=== PATIENT | male | born 1960 | race Caucasian/White ===

== ENCOUNTER 2022-05-06 08:01 | Outpatient (CLI) | payer OTHER, SELFPAY ==
[2022-05-06 10:39] LABS: PSA Screen* 2.24 ng/mL (0.10-4.00)
== END 2022-05-06 08:02 | disposition home or self-care (01) ==
LOC: NFLDREF 08:01
PROVIDERS: PCP Internal Medicine; Visit Provider Internal Medicine
DX: N40.0 Benign prostatic hyperplasia without lower urinary tract symptoms (principal)
CPT/HCPCS: 84153

== ENCOUNTER 2023-01-30 08:06 | Outpatient (CLI) | payer OTHER, SELFPAY | END 2023-01-30 08:07 | disposition home or self-care (01) | PROVIDERS: PCP Internal Medicine; Visit Provider Internal Medicine | DX: Z00.00 Encounter for general adult medical examination without abnormal findings (principal); I10 Essential (primary) hypertension; Z12.5 Encounter for screening for malignant neoplasm of prostate; Z13.6 Encounter for screening for cardiovascular disorders | CPT/HCPCS: 80053; 80061; 84153 ==

== ENCOUNTER 2023-12-22 07:27 | Outpatient (CLI) | payer MEDICARE, SELFPAY | END 2023-12-22 07:28 | disposition home or self-care (01) | LOC: NFLDREF 12-30 19:04 | PROVIDERS: PCP Internal Medicine; Referring Provider Internal Medicine; Visit Provider Internal Medicine | DX: I10 Essential (primary) hypertension (principal); R79.89 Other specified abnormal findings of blood chemistry; Z12.5 Encounter for screening for malignant neoplasm of prostate; Z13.220 Encounter for screening for lipoid disorders | CPT/HCPCS: 80053; 80061; G0103 ==

== ENCOUNTER 2024-12-23 07:43 | Outpatient (CLI) | payer MEDICARE, SELFPAY | END 2024-12-23 07:44 | disposition home or self-care (01) | LOC: NFLDREF 23:58 | PROVIDERS: PCP Internal Medicine; Referring Provider Internal Medicine; Visit Provider Internal Medicine | DX: I10 Essential (primary) hypertension (principal); E78.5 Hyperlipidemia, unspecified; N40.0 Benign prostatic hyperplasia without lower urinary tract symptoms; Z12.5 Encounter for screening for malignant neoplasm of prostate | CPT/HCPCS: 80053; 80061; G0103 ==